=== PATIENT | male | born 1985 | race Caucasian/White ===

== ENCOUNTER → 2018-06-20 | Emergency (ER) | payer MEDICAID ==
[~2018-06-20] VITALS: Ht 180.3 cm; Wt 110.5 kg
[~2018-06-20] MED LIST: FAMOTIDINE 20 MG INJ IV STA; LOPE2CAP PO; MAG-19 PO; ONDANSETRON 4 MG INJ IV STA; SOD CHLORIDE 0.9% 1,000 ML IV STA
[2018-06-20 02:17] VITALS: Ht 180.3 cm; Wt 110.5 kg
--- NOTE | 2018-06-20 02:52 | ERD ---
ER Documentation Chief Complaint Chief Complaint STATES FOOD POISONING, C/O DIARRHEA, RIB PAIN, FEELING HOT AND COLD, SOB HPI Is a 32-year-old male who states "I got food poisoning,". He states the symptoms began today at around 7 PM after he ate at the [employer] restaurant. He states shortly afterwards he began developing multiple episodes of nonbloody watery diarrhea. He also feels GERD symptoms. He states he alternates between chills and feeling hot. He also states he has aches in his ribs and shortness of breath. No chest pain or palpitations. Denies any alcohol smoking or drugs. ROS All systems reviewed and are negative except as per history of present illness. Medications Home Meds Active Scripts Magaldrate/Simethicone* (Mylanta*) 355 Ml Susp, 30 ML PO QID PRN for GASTROINTESTINAL UPSET, #1 BOTTLE Prov:PRABHAKAR BURR PA-C 06/20/18 Loperamide Hcl* (Imodium*) 2 Mg Capsule, 2 MG PO .AFTER EA LOOSE BM PRN for DIARRHEA, #20 TAB Prov:PRABHAKAR BURR PA-C 06/20/18 Allergies Allergies: Coded Allergies: No Known Allergy (Unverified , 06/20/18) PMhx/Soc Medical and Surgical Hx: pt denies Medical Hx, pt denies Surgical Hx Hx Alcohol Use: No Hx Substance Use: No Hx Tobacco Use: No Smoking Status: Never smoker FmHx Family History: No diabetes Physical Exam Vitals Vital Signs Date Temp Pulse Resp B/P (MAP) Pulse Ox O2 O2 Flow FiO2 Time Delivery Rate 06/20/18 98.4 114 19 121/88 98 02:17 (99) Physical Exam INITIAL VITAL SIGNS: Reviewed by me GENERAL: Awake, alert and oriented x 4, well appearing, nontoxic, speaking in full sentences. No acute distress HEAD: Atraumatic NECK: Supple. No masses. Full range of motion. No meningismus. No midline tenderness. EYES: EOMI. PERRL. RESPIRATORY: Clear to auscultation bilaterally. Symmetric chest wall rise. No wheezing or rales. No accessory muscle use. CV: Regular rate and rhythm. No murmurs, rubs, or gallops. ABDOMEN: Soft, non-distended. Nontender. Negative [place]. Negative McBurneys point tenderness. No CVA tenderness bilaterally. No guarding. No rebound. Result Diagram: 06/20/18 0235 06/20/18 0235 Results 24 hrs Laboratory Tests Test 06/20/18 02:35 White Blood Count 11.4 10^3/ul Red Blood Count 5.77 10^6/ul Hemoglobin 16.8 g/dl Hematocrit 49.3 % Mean Corpuscular Volume 85.4 fl Mean Corpuscular Hemoglobin 29.1 pg Mean Corpuscular Hemoglobin Concent 34.1 g/dl Red Cell Distribution Width 12.6 % Platelet Count 150 10^3/UL Mean Platelet Volume 11.7 fl Immature Granulocytes % 0.300 % Neutrophils % 90.1 % Lymphocytes % 3.7 % Monocytes % 5.2 % Eosinophils % 0.4 % Basophils % 0.3 % Nucleated Red Blood Cells % 0.0 /100WBC Immature Granulocytes # 0.040 10^3/ul Neutrophils # 10.3 10^3/ul Lymphocytes # 0.4 10^3/ul Monocytes # 0.6 10^3/ul Eosinophils # 0.1 10^3/ul Basophils # 0.0 10^3/ul Nucleated Red Blood Cells # 0.0 10^3/ul Sodium Level 142 mmol/L Potassium Level 4.7 mmol/L Chloride Level 105 mmol/L Carbon Dioxide Level 23 mmol/L Anion Gap 14 Blood Urea Nitrogen 19 mg/dl Creatinine 1.30 mg/dl Est Glomerular Filtrat Rate mL/min > 60 mL/min Glucose Level 122 mg/dl Calcium Level 10.8 mg/dl Total Bilirubin 1.0 mg/dl Direct Bilirubin 0.00 mg/dl Indirect Bilirubin 1.0 mg/dl Aspartate Amino Transf (AST/SGOT) 37 IU/L Alanine Aminotransferase (ALT/SGPT) 36 IU/L Alkaline Phosphatase 101 IU/L Total Protein 8.8 g/dl Albumin 5.1 g/dl Globulin 3.70 g/dl Albumin/Globulin Ratio 1.37 Lipase 91 U/L Current Medications Medications Dose Sig/Radha Start Time Status Last (Trade) Ordered Route PRN Stop Time Admin Dose Reason Admin Sodium 1,000 ml @ Q1H STAT 06/20/18 06/20/18 Chloride 1,000 mls/hr IV 02:31 06/20/18 02:43 03:30 Ondansetron 4 mg ONCE STAT 06/20/18 DC 5/3/19 HCl (Zofran IV 02:31 06/20/18 02:43 Inj) 02:32 Famotidine 20 mg ONCE STAT 06/20/18 DC 06/20/18 (Pepcid Iv) IV 02:31 06/20/18 02:43 02:32 Procedures/MDM The differential diagnosis includes but is not limited to appendicitis, cholelithiasis, cholecystitis, pancreatitis, hepatitis, gastritis, peptic ulcer disease, bowel obstruction, diverticulitis, renal disease including stones, torsion, AAA, pyelonephritis, and others. Patient does have tachycardia 114. His GI examination is benign he is afebrile. He is given IV fluids Pepcid and Zofran. Abdominal labs ordered. Laboratory analysis shows no evidence of acute emergent abnormality. No evidence of significant leukocytosis suggesting systemic infection or severe anemia. No evidence of acute renal or liver failure, no evidence of severe alkalosis or acidosis. Patient counseled regarding my diagnostic impression and care plan. Prior to discharge all questions answered. Pt agrees with treatment plan and understands strict return precautions. Pt is instructed to follow up with primary care provider within 24- 48 hours. Precautionary instructions provided including instructions to return to the ER if not improving or for any worsening or changing symptoms or concerns. Departure Diagnosis: Primary Impression: Abdominal pain Condition: Stable PRABHAKAR BURR PA-C June 20, 2018 02:52
[2018-06-20 03:17] VITALS: BP 119/88; PULSE 78; RESP 19
== END | disposition home or self-care (01) ==
LOC: FTE 02:14
DX: R10.9 Unspecified abdominal pain (principal)
CPT/HCPCS: 36415; 80053; 83690; 85025; 96374; 96375; J2405; J7030; Z7502; Z7610